=== PATIENT | female | born 1990 | race Caucasian/White ===

== ENCOUNTER → 2020-06-03 | Outpatient (CLI) | payer BC ==
--- NOTE | 2020-06-05 00:21 | ECWPNPC ---
PATIENT NAME: IRMA HAYES : 1990 GENDER: FEMALE VISIT DATE: 06/03/2020 DISCHARGE DATE: 06/03/20 0000 VISIT LOCKED DATE TIME: PHYSICIAN: MIKA TREADWELL MD RESOURCE: MIKA TREADWELL MD REASON FOR APPOINTMENT 1. PRESEDATE/SPINAL TAP HISTORY OF PRESENT ILLNESS GENERAL: 29-YEAR-OLD FEMALE PATIENT WITH A HISTORY OF NEW NEUROLOGICAL CHANGES. THE PATIENT STATES THAT IN THE LAST 6 MONTHS SHE HAS HAD SOME SENSATIONS OVER HER EARS AND SOME "STATICKY" VISION. SHE WAS EVALUATED BY AN EXTRUSION MANAGER AND NEUROLOGIST WITH QUESTIONABLE PSEUDOTUMOR. THE PATIENT WAS REFERRED HERE BY DR. KENDRICK FOR A SPINAL TAP. PATIENT DENIES UNEXPLAINABLE WEIGHT LOSS, FEVER, CHILLS, NEW CHANGES ON URINARY OR BOWEL CONTROL. FALL RISK SCREENING: SCREENING :NO FALLS REPORTED IN THE LAST YEAR PAIN SCREENING: PATIENT HAS A COMPLAINT OF ACUTE OR CHRONIC PAIN :NO NURSING NOTE: - - -. PAIN CENTER INTAKE QUESTIONS: DO YOU HAVE A HISTORY OF MRSA? :NO DO YOU TAKE A BLOOD THINNERS? :NO DO YOU HAVE ANY BLEEDING DISORDERS? :NO ANY NEW NUMBNESS OR WEAKNESS IN YOUR LEGS OR ARMS? :YES PATIENT STATES SHE HAS INTERMITTENT TINGLING IN BOTH HANDS SINCE STARTING DIAMOX 1 WEEK AGO. ANY PACEMAKER,DEFIBRILLATOR, OR DORSAL COLUMN STIMULATOR? :NO DO YOU HAVE ANY RASHES OR OPEN SORES? :NO ARE YOU ALLERGIC TO IV DYE? :NO ARE YOU DIABETIC? :NO ANY NEW PROBLEMS WITH YOUR MEDICATIONS? :NO HAVE YOU RECEIVED A VACCINE IN THE PAST 30 DAYS? :NO DO YOU PLAN TO RECEIVE A VACCINE IN THE NEXT 21 DAYS? :NO DO YOU NEED ANY PRESCRIPTION? :NO DO YOU TAKE ANY IMMUNOSUPPRESSIVE MEDICATIONS? :NO CURRENT MEDICATIONS TAKING DIAMOX SEQUELS 500 MG CAPSULE EXTENDED RELEASE 1 CAPSULE ORALLY ONCE A DAY. WILL START BID 06/04/20. TAKING SERTRALINE HCL 100 MG TABLET 1.5 TABS FOR DOSE OF 150MG ORALLY ONCE A DAY TAKING BUSPIRONE HCL 15 MG TABLET 1 TABLET ORALLY TWICE A DAY TAKING QUETIAPINE FUMARATE 50 MG TABLET 1 TABLET AT BEDTIME ORALLY ONCE A DAY TAKING LORAZEPAM 1 TAB ORAL TID PRN PAST MEDICAL HISTORY ANXIETY DEPRESSION ALLERGIES PENICILLIN G POTASSIUM: RASH - ALLERGY - CRITICALITY LOW - ONSET DATE 06/03/2020 SURGICAL HISTORY C SECTION 2013 C SECTION 2014 FAMILY HISTORY FATHER: ALIVE, DIAGNOSED WITH HYPERTENSION MOTHER: ALIVE, HYPERTENSION SIBLINGS: ALIVE, HYPERTENSION SON(S): ALIVE 1 BROTHER(S) - HEALTHY. 2 SON(S) - HEALTHY. SOCIAL HISTORY GENERAL: TOBACCO USE ARE YOU A:NONSMOKER LATEX QUESTIONNAIRE LATEX ALLERGY : HAVE YOU EVER DEVELOPED ANY TYPE OF REACTION AFTER HANDLING LATEX PRODUCTS SUCH RUBBER GLOVES, CONDOMS, DIAPHRAGMS, BALLOONS, SOCKS, OR UNDERWEAR?NO LATEX ALLERGY : HAVE YOU EVER DEVELOPED ANY TYPE OF REACTION DURING OR AFTER DENTAL APPOINTMENT, VAGINAL/RECTAL EXAMINATION, SURGICAL PROCEDURE, OR ANY OTHER EXPOSURE?NO LATEX RISK : HAVE YOU EVER HAD ANY DIFFICULTY BREATHING OR HIVES AFTER EATING OR HANDLING ANY FRUITS, OR VEGETABLES; SUCH KIWI, BANANAS, STONE FRUITS, OR CHESTNUTSNO LATEX RISK : DO YOU HAVE A PREVIOUS PERSONAL HISTORY OF MORE THAN NINE SURGERIES, SPINA BIFIDA, OR REPEATED CATHERIZATIONS? NO LATEX RISK : ARE YOU FREQUENTLY EXPOSED TO LATEX PRODUCTS IN YOUR OCCUPATION?NO DATE ASKED : 06/03/2020 RECREATIONAL DRUG USE DRUG USE?NO LEARNING BARRIERS / SPECIAL NEEDS BARRIERS TO LEARNING?NO HEARING IMPAIRED?NO VISION IMPAIRED?NO COGNITIVELY IMPAIRED?NO READINESS TO LEARN?YES LEARNING PREFERENCES?NO LEARNING CAPABILITIES PRESENT?YES EMOTIONAL BARRIERS?NO SPECIAL DEVICES?NO RIGHT OF WAY MANAGER NEEDED?NO PAIN CLINIC PFS, CLERGY, PUBLIC HEALTH REFERRALS HAS THE PATIENT BEEN EDUCATED REGARDING HIS/HER PLAN OF CARE?YES HAS THE PATIENT BEEN EDUCATED REGARDING PAIN, THE RISK FOR PAIN, THE IMPORTANCE OF EFFECTIVE PAIN MANAGEMENT, AND THE PAIN ASSESSMENT PROCESS?YES ADVANCE DIRECTIVE ADVANCE DIRECTIVE DISCUSSED WITH PATIENT:YES PATIENT AWARE OF ADVANCED DIRECTIVES AND DENIES CURRENTLY HAVING OR NEEDING ASSISTANCE WITH ADVANCED DIRECTIVES. HOSPITALIZATION/MAJOR DIAGNOSTIC PROCEDURE C SECTION 2013 C SECTION 2015 REVIEW OF SYSTEMS GLAUCOMA: NOTHYROID DISEASE: NOHYPERTENSION: NOHEART DISEASE: NOLUNG DISEASE: NODIABETES: NOGI DISEASE: NO LIVER DISEASE: NO KIDNEY DISEASE: NOSTERIOD USE: NONEUROLOGICAL DISEASE: QUESTIONABLE PSEUDOTUMORBACK PROBLEMS: NOEXTREMITIES: NOGENITOURINARY: NOBLEEDING DISORDER: NOASA CLASS: IAIRWAY CLASS: I. VITAL SIGNS WT 163.2 LBS, HT 67 IN, BMI 25.56 INDEX, BP 132/73 MM HG, HR 98 /MIN, RR 18 /MIN, TEMP 96.0 F, OXYGEN SAT % 98%, SAFE IN ENV? (Y/N) YES, NA INITIALS IL 15:16, REVIEWED BY: ANNIKA RN. EXAMINATION GENERAL: THE PATIENT IS ALERT, ORIENTED TIMES THREE AND COOPERATIVE. LUNGS ARE CLEAR TO AUSCULTATION. HEART SHOWS REGULAR RHYTHM, NO MURMURS AND NO GALLOPS. MRI OF THE BRAIN AND SHOWING SOME DISTENSION OF THE OPTIC NERVE AND SOME PITTING EDEMA. THERE IS AN ORDER FOR A SPINAL TAP FROM DR. FLY KENDRICK. ASSESSMENTS PSEUDOTUMOR - G93.2 (PRIMARY), QUESTIONABLE TREATMENT PSEUDOTUMOR CLINICAL NOTES: I DISCUSSED ALTERNATIVES WITH MS. HAYES. I WOULD LIKE WAIT TO TAKE THE CONSENT BECAUSE THE PATIENT STATES THAT SHE WAS INFORMED THAT SHE NEEDS TO DO A BRAIN MRB. WE WILL FIND OUT IF THAT NEEDS TO BE DONE BEFORE OR AFTER THE SPINAL TAP. WHEN WE FIND OUT, WE WILL CALL THE PATIENT TO BOOK HER FOR HER SPINAL TAP. WE WILL TAKE THE CONSENT THE DAY OF THE PROCEDURE. THE PATIENT IS TAKING DIAMOX. SHE WANTS CLARITY IF SHE NEEDS TO STOP THAT 3 DAY BEFORE. THE PATIENT UNDERSTANDS AND AGREES WITH THE PLAN. I, RAMIREZ BAILEY, DOCUMENTED THE ABOVE INFORMATION ACTING A SCRIBE FOR DR. TREADWELL. I HAVE REVIEWED THE ABOVE DOCUMENT, WRITTEN BY RAMIREZ BAILEY, [employer] SERVICES COORDINATOR, AND I VERIFY THAT IT IS ACCURATE. . PROCEDURE CODES FA211 ESTABILISHED PATIENT [facility] CHARGE [id number] OFFICE/OUTPATIENT VISIT EST DISPOSITION & COMMUNICATION FOLLOW UP DO NOT BOOK SPINAL TAP YET (REASON: SPINAL TAP) ELECTRONICALLY SIGNED BY MIKA TREADWELL MD, MD ON 06/04/2020 AT 10:36 AM EST DISCLAIMER : THIS IS A VISIT SUMMARY EXTRACTED FROM THE [employer] CHART. IT IS NOT A COPY OF THE [employer] PROGRESS NOTE. MTDD
== END ==
LOC: M PAIN 15:15
PROVIDERS: ATTEND Anesthesiology
DX: G93.2 Benign intracranial hypertension (principal); Z86.59 Personal history of other mental and behavioral disorders; Z88.0 Allergy status to penicillin; Z79.899 Other long term (current) drug therapy

== ENCOUNTER → 2020-07-01 | Outpatient (CLI) | payer BC ==
[~2020-07-01] MED LIST: LIDOCAINE 1% SDV 30ML VIAL As Ordered ONE; MIDAZOLAM INJ 2MG/2ML VIAL (J2250 PER 1MG) As Ordered ONE; fentaNYL 100 MCG/2 ML INJECTION (J3010) As Ordered ONE
[2020-07-01 11:50] LABS: APPEARANCE, CSF CLEAR (CLEAR); COLOR, CSF COLORLESS (COLORLESS); CSF TUBE# CELL CNT TUBE 3
[2020-07-01 12:58] LABS: CSF TUBE# GLU TUBE 1; CSF TUBE# TP TUBE 1; GLUCOSE CSF 51 MG/DL (40-75); TOTAL PROTEIN,CSF 30 MG/DL (15-45)
--- NOTE | 2020-07-02 01:56 | ECWPNPC ---
PATIENT NAME: IRMA HAYES : 1990 GENDER: FEMALE VISIT DATE: 07/01/2020 DISCHARGE DATE: 07/01/20 1041 VISIT LOCKED DATE TIME: PHYSICIAN: MIKA TREADWELL MD RESOURCE: MIKA TREADWELL MD REASON FOR APPOINTMENT 1. SPINAL TAP HISTORY OF PRESENT ILLNESS GENERAL: - -. FALL RISK SCREENING: SCREENING :NO FALLS REPORTED IN THE LAST YEAR PAIN SCREENING: PATIENT HAS A COMPLAINT OF ACUTE OR CHRONIC PAIN :NO PT DENIES PAIN NURSING NOTE: - -. PAIN CENTER INTAKE QUESTIONS: DO YOU HAVE A HISTORY OF MRSA? :NO DO YOU TAKE A BLOOD THINNERS? :NO DO YOU HAVE ANY BLEEDING DISORDERS? :NO ANY NEW NUMBNESS OR WEAKNESS IN YOUR LEGS OR ARMS? :NO ANY PACEMAKER,DEFIBRILLATOR, OR DORSAL COLUMN STIMULATOR? :NO DO YOU HAVE ANY RASHES OR OPEN SORES? :NO ARE YOU ALLERGIC TO IV DYE? :NO ARE YOU DIABETIC? :NO ANY NEW PROBLEMS WITH YOUR MEDICATIONS? :NO HAVE YOU RECEIVED A VACCINE IN THE PAST 30 DAYS? :NO DO YOU PLAN TO RECEIVE A VACCINE IN THE NEXT 21 DAYS? :NO DO YOU TAKE ANY IMMUNOSUPPRESSIVE MEDICATIONS? :NO ANY HISTORY OF SEIZURES? :NO ANY HISTORY OF CARDIAC ISSUES OR EVENTS? :NO DO YOU HAVE SLEEP APNEA? :NO ANY RECENT HEAD INJURY? :NO DO YOU HAVE ANY NEW INFECTIONS? :NO IS THERE A CHANCE YOU COULD BE ? :NO ARE YOU BREAST FEEDING? :NO WHEN DID YOU LAST EAT? : -LAST NIGHT DINNER WHEN DID YOU LAST DRINK? : -THIS MORNING WHAT DID YOU LAST DRINK? : -WATER NAME OF PERSON DRIVING YOU HOME? : KAREN DO YOU HAVE ANY OTHER QUESTIONS OR CONCERNS? : - CURRENT MEDICATIONS TAKING DIAMOX SEQUELS 500 MG CAPSULE EXTENDED RELEASE 1 CAPSULE ORALLY ONCE A DAY. WILL START BID 06/04/20., NOTES: 06-28-2020 TAKING SERTRALINE HCL 100 MG TABLET 1.5 TABS FOR DOSE OF 150MG ORALLY ONCE A DAY, NOTES: 07-01-2020 TAKING BUSPIRONE HCL 15 MG TABLET 1 TABLET ORALLY TWICE A DAY, NOTES: 07-01-2020 TAKING QUETIAPINE FUMARATE 50 MG TABLET 1 TABLET AT BEDTIME ORALLY ONCE A DAY, NOTES: 06-30-2020 2100 TAKING LORAZEPAM 1 TAB ORAL TID PRN MEDICATION LIST REVIEWED AND RECONCILED WITH THE PATIENT PAST MEDICAL HISTORY ANXIETY DEPRESSION ALLERGIES PENICILLIN G POTASSIUM: RASH - ALLERGY - CRITICALITY LOW - ONSET DATE 06/03/2020 SURGICAL HISTORY C SECTION 2013 C SECTION 2014 FAMILY HISTORY FATHER: ALIVE, DIAGNOSED WITH HYPERTENSION MOTHER: ALIVE, HYPERTENSION SIBLINGS: ALIVE, HYPERTENSION SON(S): ALIVE 1 BROTHER(S) - HEALTHY. 2 SON(S) - HEALTHY. SOCIAL HISTORY GENERAL: TOBACCO USE ARE YOU A:NONSMOKER LATEX QUESTIONNAIRE LATEX ALLERGY : HAVE YOU EVER DEVELOPED ANY TYPE OF REACTION AFTER HANDLING LATEX PRODUCTS SUCH RUBBER GLOVES, CONDOMS, DIAPHRAGMS, BALLOONS, SOCKS, OR UNDERWEAR?NO LATEX ALLERGY : HAVE YOU EVER DEVELOPED ANY TYPE OF REACTION DURING OR AFTER DENTAL APPOINTMENT, VAGINAL/RECTAL EXAMINATION, SURGICAL PROCEDURE, OR ANY OTHER EXPOSURE?NO LATEX RISK : HAVE YOU EVER HAD ANY DIFFICULTY BREATHING OR HIVES AFTER EATING OR HANDLING ANY FRUITS, OR VEGETABLES; SUCH KIWI, BANANAS, STONE FRUITS, OR CHESTNUTSNO LATEX RISK : DO YOU HAVE A PREVIOUS PERSONAL HISTORY OF MORE THAN NINE SURGERIES, SPINA BIFIDA, OR REPEATED CATHERIZATIONS? NO LATEX RISK : ARE YOU FREQUENTLY EXPOSED TO LATEX PRODUCTS IN YOUR OCCUPATION?NO DATE ASKED : 06/30/2020 ALCOHOL USE: NO. RECREATIONAL DRUG USE DRUG USE?NO LEARNING BARRIERS / SPECIAL NEEDS BARRIERS TO LEARNING?NO HEARING IMPAIRED?NO VISION IMPAIRED?NO COGNITIVELY IMPAIRED?NO READINESS TO LEARN?YES LEARNING PREFERENCES?NO LEARNING CAPABILITIES PRESENT?YES EMOTIONAL BARRIERS?NO SPECIAL DEVICES?NO SECURITY SALES CONSULTANT NEEDED?NO HOSPITALIZATION/MAJOR DIAGNOSTIC PROCEDURE C SECTION 2014 C SECTION 2014 VITAL SIGNS WT 160.4 LBS, HT 67 IN, BMI 25.12 INDEX, BP 143/86 MM HG, HR 102 /MIN, RR 18 /MIN, TEMP 97.0 F, OXYGEN SAT % 98%, SAFE IN ENV? (Y/N) YES, NA INITIALS AW 0813, REVIEWED BY: KG. EXAMINATION GENERAL EXAMINATION: A HISTORY AND PHYSICAL EXAM ON THE PATIENT WAS DONE ON 06/03/2020 (DATE OF ORIGINAL ASSESSMENT) IN PREPARATION OF SURGERY/PROCEDURE. I HAVE NOW REASSESSED THIS PATIENT'S HEALTH STATUS AND PERFORMED AN UPDATED EXAM TODAY. ALL CHANGES IN THE PATIENT'S HISTORY, PHYSICAL EXAM, PRE-EXISTING CONDITONS, AND INDICATIONS/CONTRAINDICATIONS TO THE PLANNED PROCEDURE AND ANESTHESIA ARE DOCUMENTED AND EVALUATED BELOW. I ATTEST TO THE ADEQUACY AND APPROPRIATENESS OF MY ASSESSMENT, AND CONFIRM THE NECESSITY FOR THE PLANNED PROCEDURE. THE PATIENT IS ALERT, ORIENTED TIMES THREE AND COOPERATIVE. LUNGS ARE CLEAR TO AUSCULTATION. HEART SHOWS REGULAR RHYTHM, NO MURMURS AND NO GALLOPS. ASSESSMENTS PSEUDOTUMOR - G93.2 (PRIMARY), QUESTIONABLE TREATMENT PSEUDOTUMOR MEDICATION: VERSED 1MG IV (MIDAZOLAM)HERMAN BERNARD 07/01/2020 9:19:45 AM > VERIFIED RAMIREZ BAILEY 07/01/2020 09:44:18 AM - SECOND DOSE ORDERED, VERIFIED WITH RAMIREZ JUNIOR 07/01/2020 09:50:27 AM - THIRD DOSE ORDERED, VERIFIED WITH JANUSZ WIGGINS 07/01/2020 10:17:05 AM > 1MG AT 0938, 1MG GIVEN AT 0944, 1MG GIVEN AT 0949, FOR A TOTAL AMOUNT GIVEN OF 3 MG. Herberth COBOS RN. MEDICATION: FENTANYL CITRATE 50MCG IV HERMAN BERNARD 07/01/2020 9:20:06 AM > VERIFIED RAMIREZ BAILEY 07/01/2020 09:46:58 AM - SECOND DOSE ORDERED, VERIFIED WITH RAMIREZ JUNIOR 07/01/2020 09:50:58 AM - THIRD DOSE ORDERED, VERIFIED WITH JANUSZ WIGGINS 07/01/2020 10:19:30 AM > 50MCG GIVEN AT 0939,50MCG GIVEN AT 0946, 50MCG GIVEN AT 0952 FOR A TOTAL OF 150MCG. Herberth COBOS RN OXYGEN AT 2 LITERS PER NASAL CANNULA IV LACTATED RINGER'S AT ANTONIA RUSSELL 07/01/2020 9:27:42 AM > ATTACHED ANTONIA GONSALES 07/01/2020 10:15:38 AM > 250 ML OF LACTACTED RINGERS GIVEN ANTONIA GONSALES 07/01/2020 10:21:05 AM > 22 G STARTED BY Guanako COBOS ON 1ST ATTEMPT COMPLETION OF PROCEDURAL VISIT WHEN MEETS CRITERIA OTHERS NOTES: SPOKE WITH PT, SHE WAS AT WORK AND COULDN'T TALK, PT REQUESTING A CALL BACK EITHER BETWEEN 12:30-1PM, OR AFTER 4:30PM. Sanchez RENEE RN BSN. PAT COMPLETED 06/30/20 @ 7327. Magalys MOULTON RN. PROCEDURES PAIN NURSING RECORD PROCEDURE IN ROOM 0915, PHYSICIAN IN ROOM 0937, START 0949, FINISH 1000, PHYSICIAN OUT OF ROOM 1003, OUT OF ROOM 1012, ECG NORMAL SINUS TACHY, PATIENT SHIELDED N/A, SAFETY STRAP NO, PREP BETADINE, DRESSING TEGADERM PREPPED AND DRAPED BY DR TREADWELL LOC: 1. ALERT, ORIENTED ANTONIA GONSALES 07/01/2020 9:46:13 AM > RESP: 1. REGULAR, NO DYSPNEA ANTONIA GONSALES 07/01/2020 9:46:18 AM > COLOR: 1. PINK ANTONIA GONSALES 07/01/2020 9:46:25 AM > SKIN: 1. WARM, DRY VITALS: 0920 130/68 100 HR 97 % ON 2 LITERS 18 RESP KGULLO RN 0935 135/65 107 HR 98 %ON 2 LITERS 18 RESP KGULLO RN 0945 133/65 100 HR 99% ON 2 LITER 0950 130/72 104 HR 99% ON 2 LITERS 18 RESP KGULLO RN 0955 130/74 104 98% ON 2 LITERS 18 RESP KGULLO RN 1000 122/72 99 97% ON 2 LITERS 18 RESP KGULLO RN 1015 132/70 95 HR 95 % ON RA 18 RESP KGULLO RN POST PROCEDURE 130/55 88 HR 99 ON RA RESP 18 QUIRINOO RN NOTES Riaz GONSALES RN COMPLETION OF PROCEDURE APPOINTMENT: POST PAIN 0, DRESSING SITE DRY AND INTACT, IV DISCONTINUED, SITE CLEAR, CATHETER INTACT, GAIT STEADY, TEACHING COMPLETED, PATIENT ACKNOWLEDGES UNDERSTANDING YES WENT OVER THE DC WITH BATOOL PTS WELL AT THE VEHICLE OUTSIDE PT AND VERBALIZE UNDERSTANDING, PROCEDURE APPOINTMENT COMPLETED AT 1040 BY: Riaz GONSALES RN PRE PROCEDURE DIAGNOSIS NEUROLOGICAL SYMPTOMS,QUESTIONABLE PSEUDOTUMOR PROCEDURE SPINAL TAP PRE PROCEDURE NOTE THE PATIENT HAS A HISTORY OF NEUROLOGICAL SYMPTOMS. THE PATIENT WAS REFERRED HERE BY DR. KENDRICK FOR A SPINAL TAP TO RULE OUT PSEUDOTUMOR. THE PATIENT WAS INTERVIEWED, EXAMINED AND TREATMENT QUESTIONNAIRES REVIEWED. THE PROCEDURE, RISKS AND BENEFITS WERE DISCUSSED WITH THE PATIENT. I DISCUSSED WITH THE PATIENT THAT I WILL NOT RECEIVE OR SEE THE RESULTS FROM THIS TEST AND THAT THEY WILL HAVE TO FOLLOW UP WITH DR. KENDRICK FOR THE RESULTS. THE PATIENT WOULD LIKE TO MOVE FORWARD WITH IV SEDATION DUE TO ANXIETY AND DISCOMFORT ASSOCIATED WITH THE PROCEDURE. THE PATIENT DENIES UNEXPLAINABLE, WEIGHT LOSS, FEVER, CHILLS, OR CHANGES IN URINARY OR BOWEL CONTROL. THE PATIENT IS COVID-19 NEGATIVE DESCRIPTION OF PROCEDURE AFTER CONSENT WAS TAKEN, THE PATIENT WAS BROUGHT TO THE PROCEDURE ROOM AND PLACED IN THE LEFT LATERAL POSITION. THE LUMBOSACRAL AREA WAS CLEANED WITH BETADINE SOLUTION AND DRAPED ASEPTICALLY. THE PROCEDURE WAS DONE UNDER STERILE CONDITIONS. A TIMEOUT WAS PERFORMED WHERE THE CONSENTED SITE WAS VERIFIED WITH EVERYONE IN THE ROOM. LOCAL INFILTRATE 1% LIDOCAINE WAS USED TO NUMB THE SKIN AND SUBCUTANEOUS TISSUE BELOW IT AT THE APPROXIMATELY THE L4-L5 INTERSPACE. A 22-GAUGE QUINCKE NEEDLE WAS ADVANCED UNTIL THE DURA WAS FELT AND CSF WAS FREE-FLOWING. THERE WAS NO BLOOD RETURN ENCOUNTERED. NO PARESTHESIA WAS ENCOUNTERED. OPENING PRESSURE WAS MEASURED AT 23 CM OF WATER. 4 VIALS OF 3 ML OF CSF WAS COLLECTED. CSF WAS CLEAR. CSF WAS SENT FOR STUDIES ORDERED BY THE REFERRING PHYSICIAN. VITAL SIGNS WERE STABLE. THERE WERE NO COMPLICATIONS. ESTIMATED BLOOD LOSS WAS LESS THAN 5 ML. THE PATIENT WAS SENT TO THE RECOVERY ROOM WHERE HE WAS MOVING HIS EXTREMITIES AND DOING WELL. THE PATIENT RECEIVED VERSED 3 MG AND FENTANYL 150 MCG IV IN DIVIDED DOSES. FACE TO FACE START TIME: 937 FACE TO FACE END TIME: 1003 TOTAL FACE TO FACE TIME: 25 MINUTES POST PROCEDURE NOTE I DISCUSSED THE PROCEDURE WITH THE PATIENT. I WILL SEND THE CSF FOR STUDIES. THE PATIENT WILL FOLLOW UP WITH DR. KENDRICK. THE PATIENT WILL CALL OUR OFFICE NEEDED. I, RAMIREZ BAILEY, DOCUMENTED THE ABOVE INFORMATION ACTING A SCRIBE FOR DR. TREADWELL. I HAVE REVIEWED THE ABOVE DOCUMENT, WRITTEN BY CIRILO MENA, AND I VERIFY THAT IT IS ACCURATE. PROCEDURE CODES 73144 SPINAL FLUID TAP DIAGNOSTIC 82708 MOD SED SAME PHYS/QHP 5/>YRS 65277 MOD SED SAME PHYS/QHP EA DISPOSITION & COMMUNICATION FOLLOW UP FOLLOW UP WITH NEUROLOGIST (REASON: CALL OUR OFFICE IF NEEDED) ELECTRONICALLY SIGNED BY MIKA TREADWELL MD, MD ON 07/01/2020 AT 01:51 PM EST DISCLAIMER : THIS IS A VISIT SUMMARY EXTRACTED FROM THE [employer] CHART. IT IS NOT A COPY OF THE [employer] PROGRESS NOTE. KHALIFD
== END ==
LOC: M PAIN 08:00
PROVIDERS: ATTEND Anesthesiology
DX: G93.2 Benign intracranial hypertension (principal); F41.9 Anxiety disorder, unspecified; F32.9 Major depressive disorder, single episode, unspecified; Z79.899 Other long term (current) drug therapy; Z88.0 Allergy status to penicillin
CPT/HCPCS: 36415; 62270; 82784; 82945; 83916; 84157; 87070; 87102; 87205; 87252; 87483; 88108; 88313; 89050; 99152; 99153; J2250; J3010